=== PATIENT | male | born 1930 | race Caucasian/White ===

== ENCOUNTER → 2016-06-13 | Outpatient (REF) | payer MEDICARE, OTHER, BC ==
[~2016-06-13] MED LIST: ASTA4CAP PO; CIPR500T3 PO; Fish Oil PO; LISI5TAB PO; LUTE6CAP2 PO; PERCOCET PO; PRED5TA PO; SPIR1CAP INH; VITA200015 PO; [UNRECOGNIZED DRUG - CODE] PO
[2016-06-13 16:49] LABS: ALT/SGPT 13 U/L (12-78); AST/SGOT 13 U/L (15-37)
== END ==
LOC: M LABDRAW1 15:34
PROVIDERS: ATTEND Ophthalmology
DX: H35.52 Pigmentary retinal dystrophy (principal)
CPT/HCPCS: 36415; 51798; 84450; 84460; 85652; 86140; G0463

== ENCOUNTER → 2016-06-13 | Outpatient (REF) | payer MEDICARE, OTHER, BC | LOC: M LABDRAW1 15:33 | PROVIDERS: ATTEND Emergency Medicine | DX: M35.3 Polymyalgia rheumatica (principal) ==

== ENCOUNTER → 2016-07-18 | Outpatient (REF) | payer MEDICARE, OTHER, BC | LOC: M LABDRAW1 13:26 | PROVIDERS: ATTEND Emergency Medicine | DX: M35.3 Polymyalgia rheumatica (principal) ==

== ENCOUNTER → 2016-08-20 | Outpatient (REF) | payer MEDICARE, OTHER, BC | LOC: M LABDRAW1 11:26 | PROVIDERS: ATTEND Emergency Medicine | DX: M35.3 Polymyalgia rheumatica (principal) ==

== ENCOUNTER → 2016-10-12 | Outpatient (REF) | payer MEDICARE, OTHER, BC | LOC: M LABDRAW1 15:47 | PROVIDERS: ATTEND Emergency Medicine | DX: M35.3 Polymyalgia rheumatica (principal) ==

== ENCOUNTER → 2016-11-19 | Outpatient (REF) | payer MEDICARE, OTHER, BC ==
[~2016-11-19] MED LIST changes: +ESOM1CAP5; +NAPR500T PO; +SOMA350T PO
== END ==
LOC: M LAB REF 13:03
PROVIDERS: ATTEND Urology
DX: Z85.51 Personal history of malignant neoplasm of bladder (principal)

== ENCOUNTER → 2016-12-13 | Outpatient (REF) | payer MEDICARE, OTHER, BC ==
[2016-12-13 12:17] LABS: BASO % 0.6 % (0.0-1.0); EOS # 0.2 K/mm3 (0.0-0.50); EOS % 2.5 % (0.0-3.0); LARGE UNSTAINED CELL # 0.1 K/mm3 (0.0-0.4); LARGE UNSTAINED CELL % 1.1 % (0.0-4.0); LYMPH # 1.6 K/mm3 (1.5-4.5); LYMPH % 26.4 % (24.0-44.0); MEAN CORPUSCULAR HEMOGLOBIN 31.4 pg (27.0-33.0); MEAN CORPUSCULAR HGB CONC 33.4 g/dl (32.0-36.5); MEAN CORPUSCULAR VOLUME 93.9 fl (80.0-96.0); MONO # 0.5 K/mm3 (0.0-0.8); MONO % 8.9 % (0.0-5.0); NEUTROPHILS # 3.5 K/mm3 (1.8-7.7); NEUTROPHILS % 60.6 % (36.0-66.0); PLATELET COUNT, AUTOMATED 160 k/mm3 (150-450); RED CELL DISTRIBUTION WIDTH 13.8 % (11.5-14.5); WHITE BLOOD COUNT 5.8 K/mm3 (4.0-10.0)
[2016-12-13 12:28] LABS: ALBUMIN 3.3 GM/DL (3.2-5.2); ALKALINE PHOSPHATASE 86 U/L (45-117); ALT/SGPT 11 U/L (12-78); ANION GAP 6 MEQ/L (8-16); AST/SGOT 8 U/L (15-37); BILIRUBIN,TOTAL 0.7 MG/DL (0.2-1.0); BLOOD UREA NITROGEN 27 MG/DL (7-18); CALCIUM LEVEL 9.6 MG/DL (8.8-10.2); CARBON DIOXIDE LEVEL 25 MEQ/L (21-32); CHLORIDE LEVEL 112 MEQ/L (98-107); CHOLESTEROL LEVEL 203 MG/DL (<200); CREATININE FOR GFR 1.21 MG/DL (0.70-1.30); GLOMERULAR FILTRATION RATE > 60.0 (>35); GLUCOSE, FASTING 94 MG/DL (83-110); POTASSIUM SERUM 4.2 MEQ/L (3.5-5.1); SODIUM LEVEL 143 MEQ/L (136-145); TOTAL PROTEIN 6.3 GM/DL (6.4-8.2); TRIGLYCERIDES LEVEL 147 MG/DL (<150)
[2016-12-13 12:46] LABS: ERYTHROCYTE SEDIMENTATION RATE 19 mm/hr (0-30)
== END ==
LOC: M LABDRAW1 11:48
PROVIDERS: ATTEND Emergency Medicine
DX: M35.3 Polymyalgia rheumatica (principal); I10 Essential (primary) hypertension; E55.9 Vitamin D deficiency, unspecified; R73.01 Impaired fasting glucose

== ENCOUNTER → 2017-01-03 | Outpatient (CLI) | payer MEDICARE, BC, OTHER ==
--- NOTE | 2017-01-03 14:59 | REP ---
REASON FOR EXAM: Dizziness and giddiness. COMPARISON: None. Echogenic material is seen along the carotid arterial cota, some of which casts an acoustic shadow consistent with calcific deposition. RIGHT LEFT CCA systolic 86.9 cm/s 79.2 cm/s CCA diastolic 12.3 cm/s 17.0 cm/s ICA systolic 83.8 cm/s 64.2 cm/s ICA diastolic 26.2 cm/s 22.2 cm/s ICA/CCA ratio 0.96 0.81 Analysis of the spectral waveforms shows no significant spectral broadening. Antegrade flow is seen in both vertebral arteries. IMPRESSION: Less than 50% stenosis in the internal carotid artery bilaterally caused by soft and calcified plaque formation according to the NASCET consensus criteria. Signed by Shorty Avalos DO 01/03/2017 04:27 P
== END ==
LOC: M RAD 09:13
PROVIDERS: ATTEND Emergency Medicine
DX: R42 Dizziness and giddiness (principal); I65.23 Occlusion and stenosis of bilateral carotid arteries

== ENCOUNTER 2017-03-22 11:22 | Emergency (ER) | payer MEDICARE, BC, OTHER ==
[~2017-03-22] VITALS: Ht 182.9 cm; Wt 72.7 kg
[2017-03-22 11:22] VITALS: BP 144/71
[~2017-03-22 11:22] MED LIST changes: -ESOM1CAP5; -NAPR500T PO; -SOMA350T PO
[2017-03-22] MEDS ORDERED: ESOM1CAP5 (11:28)
[2017-03-22] MEDS ORDERED: SOMA350T PO (13:43)
[2017-03-22] MEDS ORDERED: NAPR500T PO (13:43)
== END 2017-03-22 13:56 | disposition home or self-care (01) ==
LOC: M ED 11:22
DX: M54.32 Sciatica, left side (principal); M79.605 Pain in left leg; M19.90 Unspecified osteoarthritis, unspecified site; Z79.899 Other long term (current) drug therapy

== ENCOUNTER → 2017-05-20 | Outpatient (REF) | payer MEDICARE, BC, OTHER ==
[~2017-05-20] MED LIST changes: +ESOM1CAP5; +NAPR500T PO; +SOMA350T PO
== END ==
LOC: M SMT 12:49
PROVIDERS: ATTEND Urology
DX: Z85.51 Personal history of malignant neoplasm of bladder (principal)

== ENCOUNTER → 2017-06-13 | Outpatient (REF) | payer MEDICARE, BC, OTHER ==
[2017-06-13 12:16] LABS: BASO % 0.4 % (0.0-1.0); EOS # 0.1 10^3/uL (0.0-0.50); EOS % 0.7 % (0.0-3.0); HEMATOCRIT 36.6 % (42.0-52.0); HEMOGLOBIN 12.4 g/dl (14.0-18.0); IMMATURE GRANULOCYTE % 0.3 % (0-0); LYMPH # 0.9 10^3/uL (1.5-4.5); LYMPH % 13.2 % (24.0-44.0); MEAN CORPUSCULAR HEMOGLOBIN 31.4 pg (27.0-33.0); MEAN CORPUSCULAR HGB CONC 33.9 g/dl (32.0-36.5); MEAN CORPUSCULAR VOLUME 92.7 fl (80.0-96.0); MONO # 0.4 10^3/uL (0.0-0.8); MONO % 5.7 % (0.0-5.0); NEUTROPHILS # 5.6 10^3/uL (1.8-7.7); NEUTROPHILS % 79.7 % (36.0-66.0); PLATELET COUNT, AUTOMATED 144 10^3/uL (150-450); RED BLOOD COUNT 3.95 10^6/uL (4.30-6.10); RED CELL DISTRIBUTION WIDTH 14.3 % (11.5-14.5)
[2017-06-13 12:42] LABS: ALBUMIN 3.4 GM/DL (3.2-5.2); ALBUMIN/GLOBULIN RATIO 1.13 (1.00-1.93); ALKALINE PHOSPHATASE 84 U/L (45-117); ALT/SGPT 8 U/L (12-78); ANION GAP 8 MEQ/L (8-16); AST/SGOT 13 U/L (7-37); BILIRUBIN,TOTAL 0.7 MG/DL (0.2-1.0); BLOOD UREA NITROGEN 20 MG/DL (7-18); C REACTIVE PROTEIN QUANTITATIV < 0.30 MG/DL (0.00-0.30); CALCIUM LEVEL 8.9 MG/DL (8.8-10.2); CARBON DIOXIDE LEVEL 27 MEQ/L (21-32); CHLORIDE LEVEL 110 MEQ/L (98-107); CHOLESTEROL LEVEL 185 MG/DL (<200); CHOLESTEROL RISK RATIO 3.425 (<5); CREATININE FOR GFR 1.01 MG/DL (0.70-1.30); ERYTHROCYTE SEDIMENTATION RATE 18 mm/hr (0-30); GLOMERULAR FILTRATION RATE > 60.0 (>35); GLUCOSE, FASTING 100 MG/DL (83-110); HDL CHOLESTEROL 54 MG/DL (>40); LDL CHOLESTEROL 104.6 MG/DL (<100); NON-HDL-C 131 MG/DL; POTASSIUM SERUM 4.1 MEQ/L (3.5-5.1); SODIUM LEVEL 145 MEQ/L (136-145); TOTAL PROTEIN 6.4 GM/DL (6.4-8.2); TRIGLYCERIDES LEVEL 132 MG/DL (<150)
[2017-06-13 12:48] LABS: TOTAL 25(OH) VITAMIN D 53.4 NG/ML (30.0-100.0)
[2017-06-13 14:55] LABS: ESTIMATED AVERAGE GLUCOSE 126 MG/DL (60-110)
== END ==
LOC: M LABDRAW1 11:51
DX: M35.3 Polymyalgia rheumatica (principal); I10 Essential (primary) hypertension; E55.9 Vitamin D deficiency, unspecified; R73.01 Impaired fasting glucose
CPT/HCPCS: 80053

== ENCOUNTER → 2017-07-04 | Outpatient (REF) | payer MEDICARE, BC, OTHER ==
[2017-07-04 22:05] LABS: FREE T4 1.04 NG/DL (0.76-1.46)
[2017-07-05 11:56] LABS: PROLACTIN 4.7 NG/ML (2.1-17.7)
[2017-07-05 12:17] LABS: ESTRADIOL 19.9 PG/ML (<39.8)
[2017-07-05 12:17] LABS: LUTEINIZING HORMONE 7.5 mIU/mL (3.1-34.6)
[2017-07-07 00:07] LABS: TESTOSTERONE FREE (DIRECT) 3.7 pg/mL (6.6-18.1)
== END ==
LOC: M LABDRAW1 15:51
DX: N63.10 Unspecified lump in the right breast, unspecified quadrant (principal); E03.9 Hypothyroidism, unspecified
CPT/HCPCS: 83002

== ENCOUNTER → 2017-07-11 | Outpatient (REF) | payer MEDICARE, BC, OTHER ==
[2017-07-11 16:30] LABS: ALBUMIN 3.4 GM/DL (3.2-5.2); ALKALINE PHOSPHATASE 91 U/L (45-117); ALT/SGPT 10 U/L (12-78); AST/SGOT 9 U/L (7-37); BILIRUBIN,DIRECT 0.2 MG/DL (0.0-0.2); BILIRUBIN,TOTAL 0.4 MG/DL (0.2-1.0); TOTAL PROTEIN 6.5 GM/DL (6.4-8.2)
== END ==
LOC: M LABDRAW1 14:24
DX: L81.9 Disorder of pigmentation, unspecified (principal)
CPT/HCPCS: 80076

== ENCOUNTER → 2017-12-12 | Outpatient (REF) | payer MEDICARE, BC, OTHER ==
[2017-12-12 12:53] LABS: TOTAL 25(OH) VITAMIN D 52.3 NG/ML (30.0-100.0)
[2017-12-12 12:54] LABS: ESTIMATED AVERAGE GLUCOSE 117 MG/DL (60-110); HEMOGLOBIN A1c 5.7 %
[2017-12-12 12:55] LABS: BASO % 0.5 % (0.0-1.0); EOS # 0.2 10^3/uL (0.0-0.50); EOS % 3.5 % (0.0-3.0); HEMATOCRIT 37.1 % (42.0-52.0); HEMOGLOBIN 12.5 g/dl (13.5-17.5); IMMATURE GRANULOCYTE % 0.2 % (0-3.0); LYMPH # 1.8 10^3/uL (1.5-4.5); LYMPH % 27.9 % (24.0-44.0); MEAN CORPUSCULAR HEMOGLOBIN 30.9 pg (27.0-33.0); MEAN CORPUSCULAR HGB CONC 33.7 g/dl (32.0-36.5); MEAN CORPUSCULAR VOLUME 91.6 fl (80.0-96.0); MONO # 0.6 10^3/uL (0.0-0.8); MONO % 9.4 % (0.0-5.0); NEUTROPHILS # 3.7 10^3/uL (1.8-7.7); NEUTROPHILS % 58.5 % (36.0-66.0); PLATELET COUNT, AUTOMATED 135 10^3/uL (150-450); RED BLOOD COUNT 4.05 10^6/uL (4.30-6.10); RED CELL DISTRIBUTION WIDTH 14.2 % (11.5-14.5); WHITE BLOOD COUNT 6.4 10^3/uL (4.0-10.0)
[2017-12-12 13:07] LABS: ALBUMIN 3.4 GM/DL (3.2-5.2); ALBUMIN/GLOBULIN RATIO 1.03 (1.00-1.93); ALKALINE PHOSPHATASE 92 U/L (45-117); ALT/SGPT 10 U/L (12-78); ANION GAP 7 MEQ/L (8-16); AST/SGOT 10 U/L (7-37); BILIRUBIN,TOTAL 0.6 MG/DL (0.2-1.0); BLOOD UREA NITROGEN 24 MG/DL (7-18); C REACTIVE PROTEIN QUANTITATIV < 0.30 MG/DL (0.00-0.30); CALCIUM LEVEL 9.1 MG/DL (8.8-10.2); CARBON DIOXIDE LEVEL 26 MEQ/L (21-32); CHLORIDE LEVEL 112 MEQ/L (98-107); CHOLESTEROL LEVEL 184 MG/DL (<200); CHOLESTEROL RISK RATIO 3.755 (<5); CREATININE FOR GFR 1.15 MG/DL (0.70-1.30); GLOMERULAR FILTRATION RATE > 60.0 (>35); GLUCOSE, FASTING 96 MG/DL (70-100); HDL CHOLESTEROL 49 MG/DL (>40); NON-HDL-C 135 MG/DL; POTASSIUM SERUM 4.2 MEQ/L (3.5-5.1); SODIUM LEVEL 145 MEQ/L (136-145); TOTAL PROTEIN 6.7 GM/DL (6.4-8.2); TRIGLYCERIDES LEVEL 80 MG/DL (<150)
[2017-12-12 22:30] LABS: ERYTHROCYTE SEDIMENTATION RATE 11 mm/hr (0-30)
== END ==
LOC: M LAB REF 11:56
DX: M35.3 Polymyalgia rheumatica (principal); I10 Essential (primary) hypertension; E55.9 Vitamin D deficiency, unspecified; R73.01 Impaired fasting glucose
CPT/HCPCS: 80053

== ENCOUNTER → 2018-01-20 | Outpatient (REF) | payer MEDICARE, BC, OTHER | LOC: M SMT 17:26 | DX: Z85.51 Personal history of malignant neoplasm of bladder (principal) | CPT/HCPCS: 88108 ==

== ENCOUNTER → 2018-08-14 | Outpatient (REF) | payer MEDICARE, BC, OTHER ==
[~2018-08-14] MED LIST changes: +NAPR-50 PO; -NAPR500T PO
== END ==
LOC: M LABDRAW1 16:55
PROVIDERS: ATTEND Physician Assistant
DX: M35.3 Polymyalgia rheumatica (principal)

== ENCOUNTER → 2018-09-09 | Outpatient (REF) | payer MEDICARE, BC, OTHER ==
[~2018-09-09] MED LIST changes: -NAPR-50 PO; +NAPR-837 PO
== END ==
LOC: M LABDRAW1 15:46
PROVIDERS: ATTEND Physician Assistant
DX: M35.3 Polymyalgia rheumatica (principal)

== ENCOUNTER → 2018-09-24 | Outpatient (REF) | payer MEDICARE, BC, OTHER ==
[2018-09-24 13:16] LABS: BASO % 0.2 % (0.0-1.0); EOS % 0.4 % (0.0-3.0); HEMOGLOBIN 12.4 g/dl (13.5-17.5); LYMPH # 1.4 10^3/uL (1.5-4.5); LYMPH % 14.8 % (24.0-44.0); MEAN CORPUSCULAR HEMOGLOBIN 30.7 pg (27.0-33.0); MEAN CORPUSCULAR HGB CONC 32.6 g/dl (32.0-36.5); MEAN CORPUSCULAR VOLUME 94.1 fl (80.0-96.0); MONO # 0.7 10^3/uL (0.0-0.8); MONO % 7.3 % (0.0-5.0); NEUTROPHILS # 7.1 10^3/uL (1.8-7.7); NEUTROPHILS % 76.8 % (36.0-66.0); PLATELET COUNT, AUTOMATED 222 10^3/uL (150-450); RED BLOOD COUNT 4.04 10^6/uL (4.30-6.10); WHITE BLOOD COUNT 9.3 10^3/uL (4.0-10.0)
[2018-09-24 13:38] LABS: ALBUMIN 2.9 GM/DL (3.2-5.2); ALT/SGPT 11 U/L (12-78); BILIRUBIN,TOTAL 0.5 MG/DL (0.2-1.0); BLOOD UREA NITROGEN 20 MG/DL (7-18); C REACTIVE PROTEIN QUANTITATIV 1.24 MG/DL (0.00-0.30); CARBON DIOXIDE LEVEL 24 MEQ/L (21-32); CHLORIDE LEVEL 110 MEQ/L (98-107); CHOLESTEROL LEVEL 176 MG/DL (<200); CHOLESTEROL RISK RATIO 2.933 (<5); GLOMERULAR FILTRATION RATE > 60.0 (>35); GLUCOSE, FASTING 94 MG/DL (70-100); HDL CHOLESTEROL 60 MG/DL (>40); LDL CHOLESTEROL 102 MG/DL (<100); NON-HDL-C 116 MG/DL; POTASSIUM SERUM 4.1 MEQ/L (3.5-5.1); SODIUM LEVEL 144 MEQ/L (136-145); TOTAL 25(OH) VITAMIN D 61.5 NG/ML (30.0-100.0); TOTAL PROTEIN 6.3 GM/DL (6.4-8.2); TRIGLYCERIDES LEVEL 68 MG/DL (<150)
[2018-09-24 14:16] LABS: ERYTHROCYTE SEDIMENTATION RATE 35 mm/hr (0-30)
[2018-09-24 16:15] LABS: HEMOGLOBIN A1c 5.9 %
== END ==
LOC: M LABDRAW1 12:08
PROVIDERS: ATTEND Physician Assistant
DX: I10 Essential (primary) hypertension (principal); M35.3 Polymyalgia rheumatica; R73.01 Impaired fasting glucose; E55.9 Vitamin D deficiency, unspecified

== ENCOUNTER → 2018-12-05 | Outpatient (REF) | payer MEDICARE, BC, OTHER ==
[2018-12-05 12:45] LABS: ALBUMIN 2.9 GM/DL (3.2-5.2); ALT/SGPT 8 U/L (12-78); BILIRUBIN,TOTAL 0.6 MG/DL (0.2-1.0); BLOOD UREA NITROGEN 20 MG/DL (7-18); C REACTIVE PROTEIN QUANTITATIV 5.14 MG/DL (0.00-0.30); CALCIUM LEVEL 9.4 MG/DL (8.8-10.2); CARBON DIOXIDE LEVEL 24 MEQ/L (21-32); CHLORIDE LEVEL 109 MEQ/L (98-107); CREATININE FOR GFR 1.13 MG/DL (0.70-1.30); GLOMERULAR FILTRATION RATE > 60.0 (>35); GLUCOSE, FASTING 106 MG/DL (70-100); POTASSIUM SERUM 4.3 MEQ/L (3.5-5.1); SODIUM LEVEL 142 MEQ/L (136-145); TOTAL PROTEIN 6.7 GM/DL (6.4-8.2)
== END ==
LOC: M LABDRAW1 11:21
PROVIDERS: ATTEND Physician Assistant
DX: I10 Essential (primary) hypertension (principal); M35.3 Polymyalgia rheumatica

== ENCOUNTER → 2019-01-22 | Outpatient (REF) | payer MEDICARE, BC, OTHER ==
[2019-01-22 16:41] LABS: ALBUMIN 2.7 GM/DL (3.2-5.2); BILIRUBIN,DIRECT 0.3 MG/DL (0.0-0.2); BILIRUBIN,TOTAL 0.4 MG/DL (0.2-1.0); TOTAL PROTEIN 6.7 GM/DL (6.4-8.2)
== END ==
LOC: M LABDRAW1 15:36
PROVIDERS: ATTEND Ophthalmology
DX: H35.52 Pigmentary retinal dystrophy (principal)

== ENCOUNTER → 2019-02-05 | Outpatient (CLI) | payer MEDICARE, BC, OTHER ==
--- NOTE | 2019-02-05 13:40 | REP ---
Clinical: Shoulder pain. Technique: Internal rotation, external rotation, and Y view of the right and left shoulder. Findings: Age related osteopenia and mild degenerative changes are appreciated including subtle cortical irregularity and inferior spurring to the bilateral acromioclavicular joints. The glenohumeral joints are intact and relatively normal/symmetric. No acute fracture dislocation. Subacromial space is normal. No periarticular calcifications or loose bodies noted. Impression: Age-related osteopenia and mild arthritic changes involving the bilateral acromioclavicular joints. Electronically Signed by Jerel Briggs MD 02/05/2019 01:32 P
[2019-02-05 14:14] LABS: C REACTIVE PROTEIN QUANTITATIV 7.11 MG/DL (0.00-0.30); RHEUMATOID FACTOR QUANT < 10.0 IU/ML (<15.0)
== END ==
LOC: M LAB 12:52
PROVIDERS: ATTEND Internal Medicine Rheumatology
DX: M81.0 Age-related osteoporosis without current pathological fracture (principal)

== ENCOUNTER → 2019-03-18 | Outpatient (CLI) | payer MEDICARE, BC, OTHER ==
--- NOTE | 2019-03-18 14:46 | REP ---
Whole body radionuclide bone scan: History: Bladder carcinoma. Question metastasis. Shoulder and lower back pain. Elevated sed rate. Technique: 22.0 mCi technetium 99m MDP is injected and standard whole body bone scan imaging was acquired. Scintigraphic findings: There is mild degenerative arthritic uptake in the medial compartment of the right knee. There is arthritic uptake superiorly at the left hip consistent with osteoarthritis. There is otherwise normal distribution of skeletal tracer with uptake in bilateral kidneys and in the urinary bladder. There is no evidence to suggest skeletal metastatic disease. There are degenerative changes suspected in the cervical spine and lumbar spine. Impression: Osteoarthritic uptake pattern and degenerative disc uptake pattern in the spine. No evidence to suggest skeletal metastatic disease. Electronically Signed by Tacos Cohen MD 03/18/2019 05:45 P
== END ==
LOC: M RAD 09:45
PROVIDERS: ATTEND Internal Medicine Rheumatology
DX: Z85.51 Personal history of malignant neoplasm of bladder (principal)
CPT/HCPCS: 78306; A9503

== ENCOUNTER 2019-05-29 12:52 | Emergency (ER) | payer MEDICARE, BC, OTHER ==
[~2019-05-29] VITALS: Ht 182.9 cm; Wt 60.1 kg
--- NOTE | 2019-05-29 14:13 | REP ---
Clinical: Trauma. Technique: Frontal view of the chest with 4 views of the right hemithorax. Findings: Frontal view of the chest demonstrates no acute cardiopulmonary process. Multiple views of the right hemithorax demonstrates no obvious acute rib fracture or pathology. Impression: No acute or displaced right rib fracture identified. Electronically Signed by Jerel Briggs MD 05/29/2019 02:04 P
[2019-05-29 15:07] VITALS: BP 148/76
== END 2019-05-29 15:08 | disposition home or self-care (01) ==
LOC: M ED 12:52
DX: S20.211A Contusion of right front wall of thorax, initial encounter (principal); W01.190A Fall on same level from slipping, tripping and stumbling with subsequent striking against furniture, initial encounter; Y92.009 Unspecified place in unspecified non-institutional (private) residence as the place of occurrence of the external cause; Y93.9 Activity, unspecified; Y99.9 Unspecified external cause status; F17.200 Nicotine dependence, unspecified, uncomplicated; I10 Essential (primary) hypertension; J44.9 Chronic obstructive pulmonary disease, unspecified; K57.92 Diverticulitis of intestine, part unspecified, without perforation or abscess without bleeding; Z79.52 Long term (current) use of systemic steroids; Z79.899 Other long term (current) drug therapy